=== PATIENT | male | born 1995 | race African-American/Black ===

== ENCOUNTER 2019-02-25 13:44 | Inpatient (IN) | payer MEDICAID, SELFPAY ==
[2019-02-25 13:54] VITALS: BP 158/95; PULSE 98; RESP 16; TEMP 36.6; O2SAT 97
--- NOTE | 2019-02-25 14:15 | ED.GENADUL_ITS ---
Discharge Plan Disposition Patient Disposition: [facility] INPATIENT Condition: Serious Discharge Details Chief Complaint: Cellulitis Clinical Impression: Cellulitis of face Admit Date/Time: 02/25/19 17:32 Admit Provider: Mack Cooper Attending Provider: Mack Coopre Primary Care Provider: None,None ED Provider: Winnie Garvin Hospital Course Hospital Course: Mr Kearns is a 24 year old male with PMHx of situational depression who was admitted to [facility] on 02/25/19 with facial cellulitis after attempt to pop a pimple at home with an unknown instrument at home. He did also admit to using IV drugs (heroin, cocaine). He was treated with IVF, IV vancomycin, IV rocephin. His blood cultures were negative. His wound c&s grew MRSA, sensitivities are pending. There is no evidence of abscess at this time. The patient, however, still has significant cellulitis and swelling of the right side of his face. He is going through substance withdrawal - we believe opioid and cocaine. He was evaluated to by psychiatry for his symptoms of anxiety and reported h allucinations - he is felt to not be suicidal/in an acute decompensation of a psychiatric condition, and his symptoms are likely related to withdrawal. He desires to leave AMA at this time. We are ensuring that the patient leaves with actual physical medications in hand (cipro/doxy). He is instructed to return to the ED/report to the nearest ED when he does leave. He verbalizes that he understands that he could , loose vision, get seriously ill if he does not get fully treated for this infection and desires to leave AMA anyway, signing appropriate paperwork. Discharge Instructions Instructions: Ciprofloxacin (By mouth), Doxycycline (By mouth), Cellulitis (DC) Additional Instructions: Report to the nearest ED. Take your antibiotics as prescribed. Discharge Data Discharge Date/Time-TO BE ENTERED AT DEPARTURE: 02/25/19 18:41 Medical Decision Making <Bro Sloan NP - Last Filed: 02/28/19 08:59> Patient presenting to the emergency department for chief complaint of facial infection. Patient states that 3 days ago he had a pimple on his cheek that he attempted to pop. Over the last 24 hours he has noted significant and rapid swelling to his face and his right eye. He does state some pain with movement of his eye and it is so swollen he cannot see out of it. Patient denies any blunt trauma, fever chills, or other areas of rash. Patient has significant swelling and induration and erythema to the right eye. Difficult to fully visualize and assess EOMs due to amount of swelling but it does appear the EOMs are intact but patient does state pain with EOM movement. There is significant concern for orbital cellulitis so plan to establish IV access, check labs, CT scan of the face, and start antibiotic immediately. Patient was started on vancomycin and ceftriaxone. Review of labs show a leukocytosis, no noted bandemia, nondiagnostic CMP with mildly elevated creatinine but normal GFR. <SANDI Haider - Last Filed: 02/27/19 08:03> Care transition to myself from Bro Sloan NP, with imaging pending. Patient presents today with concern for fairly dramatic right-sided facial swelling. Swelling is causing rght eye to be swollen shut. Reported mild pain with EOM although difficult to assess as we cannot see eye at this time. Concern for abscess, CT of face ordered. Patient started on vancomycin and ceftriaxone. CT reviewed by radiologist as below: FINDINGS: Orbits: Soft tissue swelling anterior and lateral to the right globe and right orbit may represent inflammation or infection. No retro-orbital inflammatory changes or fluid collection. Sinuses: Mucosal thickening in the maxillary sinuses and ethmoid sinuses may represent sinusitis. Bones/joints: No acute fracture. Soft tissues: Soft tissue swelling anterior to right maxillary sinus 18 mm IMPRESSION: 1. Soft tissue swelling anterior and lateral to the right globe and right orbit may represent inflammation or infection. 2. No retro-orbital inflammatory changes or fluid collection. 3. Mucosal thickening in the maxillary sinuses and ethmoid sinuses may represent sinusitis. Discussed findings with the patient and reevaluated. Feel that steroids are appropraite given amount of swelling. Will give dose of Dexamethasone. Discussed inpatient admission with the patient. Given location and severity of infection, feel that IV abx prudent at this time and will consult with hospitalist. Consulted with hospitalist who agreed to admission. HPI <Bro Sloan NP - Last Filed: 02/28/19 08:59> General Date/Time Provider Initiated Documentation: 02/25/19 14:00 . Limitations to Documentation: no limitations . Information obtained by: patient . History of Present Illness 24 year old M presents to the emergency department with the chief complaint of R eye swelling, described as moderate, with intensity rated at 7. Quality is described as constant, and is localized to the face (R eye and upper cheek). Patient reports no radiation. Patient started experiencing this day(s) (3) and it has been constant. No relieving factors improve symptom(s), No exacerbating factors reported . Patient notes denies cough, fever/chills, headaches, malaise and nausea/vomiting. Patient did receive the following treatments prior to arrival, other (abx given to him by a friend (gabapentin per pill ID)) Related Data Home Medications Medication Instructions Recorded Confirmed ciprofloxacin HCl [Cipro] 500 mg PO BID #20 tab 02/27/19 doxycycline hyclate 100 mg PO BID #20 cap 02/27/19 Previous Rx's Medication Instructions Recorded ciprofloxacin HCl [Cipro] 500 mg PO BID #20 tab 02/27/19 doxycycline hyclate 100 mg PO BID #20 cap 02/27/19 Allergies Allergy/AdvReac Type Severity Reaction Status Date / Time oranges Allergy Uncoded 02/25/19 13:57 General Stated Complaint: Cellulitis TAMI: 2 Review of Systems <Bro Solan NP - Last Filed: 02/28/19 08:59> Constitutional Denies chills, Denies fever(s) and Denies headache(s) Eyes Reports eye pain Comments: denies change in vision until last night, when eye swelled shut ENT Denies otalgia, Denies headache(s), Denies sinus pain, Denies sinus pressure and Denies sore throat Cardiovascular Denies chest pain and Denies palpitations Integumentary/Breasts Reports new lesions Comments: pustule to R upper cheek x 3 days, drained clear liquid when initially popped, but then started with yellow drainage last night Neurologic Denies headache(s) Endocrine Denies palpitations PFSH <Bro Sloan NP - Last Filed: 02/28/19 08:59> Medical History (Updated 02/27/19 @ 19:16 by Shruthi Segovia MD) Drug abuse and dependence (Acute) Situational depression (Acute) Social History Smoking/Tobacco Use Status: Current every day Tobacco Type: cigarettes Alcohol Intake: never Substance use type: marijuana and crack/cocaine Exam <Bro Sloan NP - Last Filed: 02/28/19 08:59> Const General: cooperative, comfortable, well developed and well groomed Nutritional Appearance: average body habitus Orientation: oriented x3 HENMT Head: normal to inspection and normocephalic Ears: hearing grossly normal bilaterally General nose exam: external nose normal Face and sinus: erythema on the right periorbital and maxilla (open pustule noted) and edema on the right periorbital and maxilla Eyes Alignment and Position: alignment normal Periorbital: periorbital findings abnormal right periorbital swelling, periorbital tenderness and periorbital erythema; no ecchymosis and no crepitus Eyelids: eyelid abnormality right upper eyelid erythema (significant), swelling and tenderness and right lower eyelid (significant induration and swelling) erythema, swelling and tenderness EOM: EOM intact bilaterally (painful) and EOM abnormal Direct ophthalmoscopy: photophobia not present Neck Neck: normal visual inspection and no lymphadenopathy Resp Effort & Inspection: normal respiratory effort and able to speak in complete se ntences Auscultation: clear to auscultation bilaterally Cardio Rate: regular rate Rhythm: regular rhythm Heart Sounds: S1 normal, S2 normal, no gallops, no murmurs and no rubs Neuro General: alert, gait normal, tone normal and moves all extremities Cognition: normal cognition Speech: speech normal Gait: normal gait Motor: muscle tone normal throughout Course <Bro Sloan NP - Last Filed: 02/28/19 08:59> Vital Signs Temperature 36.6 C 02/25/19 13:54 Pulse 98 H 02/25/19 13:54 Respiratory Rate 16 02/25/19 13:54 Blood Pressure 158/95 H 02/25/19 13:54 Pulse Oximetry 97 02/25/19 13:54 Temperature 36.6 C 02/25/19 13:54 Temperature Source Skin 02/25/19 13:54 Pulse 98 H 02/25/19 13:54 Respiratory Rate 16 02/25/19 13:54 Respiratory Effort Non-Labored 02/25/19 13:54 Blood Pressure 158/95 H 02/25/19 13:54 Blood Pressure Position Sitting 02/25/19 13:54 Pulse Oximetry 97 02/25/19 13:54 Oxygen Delivery Method Room Air 02/25/19 13:54 Oxygen Flow Rate 0 02/25/19 13:54 Pain Level 7 02/25/19 13:54
--- NOTE | 2019-02-25 14:17 | DI.CT_ITS ---
SYMPTOM/DIAGNOSIS: ? ABSCESS OR ORBITAL CELLULITIS, SWELLING AND PAIN RT FACE FACIAL CT: CT scan of the face with contrast was performed. There is soft tissue swelling in the right cory-orbital region and overlying the right maxilla. No focal fluid collection is seen to suggest an abscess. The orbits and retro-orbital soft tissues are unremarkable. There is opacification of several ethmoid air cells and mild mucosal thickening in the maxillary sinuses. There is also mild mucosal thickening in the sphenoid sinuses. The remaining visualized paranasal sinuses are clear as are the mastoid air cells. No fluid levels are seen. The bones are intact. IMPRESSION: Right cory-orbital soft tissue swelling suspicious for cellulitis. No abscess is seen. Orbits and retro-orbital soft tissues are unremarkable. Mild weems sinusitis.
[2019-02-25 14:52] LABS: Abs Immature Grans 0.04 k/cumm (0.0-0.09); Absolute Basophil Count 0.03 k/cumm (0.0-0.2); Absolute Eosinophil Count 0.11 k/cumm (0.0-0.7); Absolute Lymphocyte Count 1.56 k/cumm (1.2-3.4); Absolute Monocyte Count 0.99 k/cumm (0.11-0.7); Absolute Neutrophil Count 8.76 k/cumm (1.2-6.7); Basophils % 0.3; HCT 40.8 % (40.0-50.0); HGB 13.1 g/dL (13.5-17.5); Immature Grans % 0.3; Lymphocytes % 13.6; Mean Corp. HGB Concentration 32.1 g/dL (32.0-36.0); Mean Corpuscular Hemoglobin 25.7 pg (27.0-33.0); Mean Corpuscular Volume 80.2 fL (80-95); Mean Platelet Volume 11.2 fL (8.0-11.0); Monocytes % 8.6; Neutrophils % 76.2; Platelet Count 236 x1000/uL (130-400); RBC 5.09 m/cumm (4.50-6.00); RBC Distribution Width 16.3 % (11.8-14.1); White Blood Cell Count 11.49 k/cumm (4.4-10.8)
[2019-02-25 15:06] LABS: ALT 20 U/L (12-78); AST 21 U/L (15-37); Albumin 3.8 g/dL (3.4-5.0); Alkaline Phosphatase 62 U/L (46-116); Anion Gap 9.7 mmol/L (3-11); BUN 15 mg/dL (7-18); Bilirubin, Total 0.6 mg/dL (0.2-1.0); CO2 29.3 mmol/L (21.0-32.0); CREATININE 1.39 mg/dL (0.70-1.30); Calcium 9.5 mg/dL (8.5-10.1); Chloride 100 mmol/L (98-107); Glucose 97 mg/dL (70-100); Potassium 3.8 mmol/L (3.5-5.1); Sodium 139 mmol/L (136-145); Total Protein 8.5 g/dL (6.4-8.2)
[2019-02-25] MEDS: Ketorolac 30 MG/ML VIAL IVP (15:10)
[2019-02-25] MEDS: cefTRIAXone 2 GM/50 ML BAG IVPB (15:15)
[2019-02-25] MEDS: Omnipaque 350 MG/ML 100 ML BTL IJ (15:30)
[2019-02-25 15:59] LABS: Lactate-non-spesis 1.5 mmol/l (0.6-1.4)
[2019-02-25 16:01] VITALS: TEMP 36.7
--- NOTE | 2019-02-25 16:41 | DI.VRAD_ITS ---
EXAM: CT Maxillofacial With Contrast EXAM DATE/TIME: 02/25/2019 2:19 PM CLINICAL HISTORY: 24 years old, male; Other: Swelling RT orbit cheek area TECHNIQUE: Imaging protocol: Axial computed tomography images of the face with intravenous contrast. Coronal and sagittal reformatted images were created and reviewed. Contrast material: [id number]; Contrast volume: 100 ml; Contrast route: RT AC; COMPARISON: No relevant prior studies available. FINDINGS: Orbits: Soft tissue swelling anterior and lateral to the right globe and right orbit may represent inflammation or infection. No retro-orbital inflammatory changes or fluid collection. Sinuses: Mucosal thickening in the maxillary sinuses and ethmoid sinuses may represent sinusitis. Bones/joints: No acute fracture. Soft tissues: Soft tissue swelling anterior to right maxillary sinus 18 mm IMPRESSION: 1. Soft tissue swelling anterior and lateral to the right globe and right orbit may represent inflammation or infection. 2. No retro-orbital inflammatory changes or fluid collection. 3. Mucosal thickening in the maxillary sinuses and ethmoid sinuses may represent sinusitis. Dictated and Authenticated by: Ninfa Thomas MD. Ordering:HETAL Crabtree MD
[2019-02-25 16:57] VITALS: BP 137/67; PULSE 75; RESP 20; TEMP 36.6; O2SAT 98
[2019-02-25] MEDS: Dexamethasone 10 MG/ML VIAL IVP (17:24)
--- NOTE | 2019-02-25 17:36 | W.PM.HP.N ---
Date of service: 02/25/19 Time of Service: 17:36 Assessment and Plan (1) Cellulitis of face: Start date: 02/25/19 Current visit: Yes Status: Acute This is a 24-year-old gentleman who tried to express a pimple in his right face resulting in infection which accelerated over the last 24 hours with increased swelling and pain over his right face and his IV close. He received 10 mg of IV Decadron in the ED which has helped the swelling almost immediately and also we are giving him vancomycin and Rocephin IV. He will receive IV Toradol as needed. If his cellulitis responds quickly he may be converted to oral therapy and discharged home within the next 24 to 48 hours. Due to his mild dehydration, he will have IV hydration overnight be converted to IV saline lock in the morning if he is doing well. (2) Tobacco dependence: Current visit: Yes Status: Chronic Patient will be given Nicotrol inhalers as needed with a nicotine patch and inhaler to be used upon admission and his heart is slightly hyperdynamic. He is not symptomatic. If he needs a low-dose Ativan during his hospital stay because of recent depression and his present state of anxiety, this will be given. History of Present Illness Chief Complaint: Right face and eye swelling Narrative: This is a 24-year-old with a 3-day history of swelling over his right face with acceleration over the last 24 hours without fever but increasing pain and swelling around his right eye. This began whenever he tried to express a pimple over his right face. He is a smoker but has no other pertinent chronic past medical history and no past surgical history. In the ED he had no fever or elevated white count though his lactate was slightly elevated and his creatinine was slightly up with decreased intake recently because of depression over the of his sister. He was given his initial dose of vancomycin and Rocephin. He also was given dexamethasone IV which appears to have helped the swelling within the last couple hours, being decreased and the patient able to open his eye more at the time I examined him. 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 Review of Systems Review of Systems 13 point review of systems otherwise unrevealing or stable and as per HPI. [facility] Medical History (Updated 02/25/19 @ 21:55 by Mack Cooper) Situational depression (Acute) Social History Smoking/Tobacco Use Status: Current every day Tobacco Type: cigarettes Alcohol Intake: never Substance use type: marijuana and crack/cocaine Meds Home Medications Medication Instructions Recorded Confirmed Type Unknown [No Known Home Meds] 02/25/19 02/25/19 History Allergies Allergy/AdvReac Type Severity Reaction Status Date / Time oranges Allergy Uncoded 02/25/19 13:57 Exam Narrative Exam Narrative: General: Patient is a very tall slightly restless pacing the room with his IV pole. He is alert and oriented x3. He is in no acute distress. HEENT: Normocephalic with swelling of the right malar face and a bandage over the mid cheek without drainage on the bandage. This area is tender to palpation and not fluctuant. His eye is partially open compared to being completely shut in the ED. Eyes reveal pupils equal reactive light symmetrically with extraocular movement intact and sclera anicteric. Oropharynx clear with pink, moist mucosa. Ears normal. Neck: Supple without JVD. Back: Normal posture with no CVA tenderness. Lungs: Clear to auscultation and percussion. No adventitious sounds. Normal inspiratory to expiratory phase ratio. Heart: Slightly dynamic precordium but regular rate and rhythm with no murmurs, gallops or rubs. Abdomen: Scaphoid contour, soft and nontender to palpation. No palpable hepatomegaly. Bowel sounds positive in all quadrants. Genitalia/Rectal: Exam deferred. Extremities: Without clubbing, cyanosis or edema. Skin: Black with no rashes, good turgor and smooth. There is slight erythema over his right face is difficult to see with his dark pigmentation. Neuro: Cranial nerves II through XII grossly intact. Motor and sensory grossly intact. Psych: Slightly anxious with depressed mood but remote and recent memory intact. Slightly pressured speech. Fair eye contact but flattened affect. Results Imaging Imaging Studies: EXAM: CT Maxillofacial With Contrast EXAM DATE/TIME: 02/25/2019 2:19 PM CLINICAL HISTORY: 24 years old, male; Other: Swelling RT orbit cheek area TECHNIQUE: Imaging protocol: Axial computed tomography images of the face with intravenous contrast. Coronal and sagittal reformatted images were created and reviewed. Contrast material: [id number]; Contrast volume: 100 ml; Contrast route: RT AC; COMPARISON: No relevant prior studies available. FINDINGS: Orbits: Soft tissue swelling anterior and lateral to the right globe and right orbit may represent inflammation or infection. No retro-orbital inflammatory changes or fluid collection. Sinuses: Mucosal thickening in the maxillary sinuses and ethmoid sinuses may represent sinusitis. Bones/joints: No acute fracture. Soft tissues: Soft tissue swelling anterior to right maxillary sinus 18 mm IMPRESSION: 1. Soft tissue swelling anterior and lateral to the right globe and right orbit may represent inflammation or infection. 2. No retro-orbital inflammatory changes or fluid collection. 3. Mucosal thickening in the maxillary sinuses and ethmoid sinuses may represent sinusitis. Dictated and Authenticated by: Ninfa Thomas MD. Labs : 02/25/19 14:40 02/25/19 14:40 Laboratory Results - last 24 hr 02/25/19 02/25/19 02/25/19 14:40 14:40 15:45 WBC 11.49 H RBC 5.09 Hgb 13.1 L Hct 40.8 MCV 80.2 MCH 25.7 L MCHC 32.1 RDW 16.3 H Plt Count 236 MPV 11.2 H Immature Gran % 0.3 Neutrophils % 76.2 Lymphocytes % 13.6 Monocytes % 8.6 Eosinophils % 1.0 Basophils % 0.3 Absolute Neutrophils 8.76 H Absolute Lymphocytes 1.56 Absolute Monocytes 0.99 H Absolute Eosinophils 0.11 Absolute Basophils 0.03 Sodium 139 Potassium 3.8 Chloride 100 Carbon Dioxide 29.3 Anion Gap 9.7 BUN 15 Creatinine 1.39 H Estimated GFR/1.73 m2 >= 60.00 Glucose 97 Lactate 1.5 H Calcium 9.5 Total Bilirubin 0.6 AST 21 ALT 20 Alkaline Phosphatase 62 Total Protein 8.5 H Albumin 3.8 Last Vital Signs Temp 36.6 C 02/25/19 16:57 Pulse 75 02/25/19 16:57 Resp 82 H 02/25/19 16:57 BP 137/67 02/25/19 16:57 Pulse Ox 98 02/25/19 16:57
[2019-02-25 19:00] VITALS: BP 150/88; PULSE 77; RESP 20; TEMP 36.9; O2SAT 97
[2019-02-25 19:10] VITALS: BP 150/88; PULSE 77; RESP 20; TEMP 36.9; O2SAT 97
[2019-02-25] MEDS: Enoxaparin 40 MG/0.4 ML SYR SC (20:16)
[2019-02-25] MEDS: Normal Saline 1,000 ML 125 ML IV (22:23)
--- NOTE | 2019-02-25 23:43 | NUR.NOTE ---
Nursing Note: Pt was admitted in Rm. 229, AO x#, restless on bed, up and about to chair. Right face with skin opening with scanty pinkish discharge noted. and swollen around and right eye closed but when asked to cover left, pt stated that he could see and read. Small dry gauze applied on the facial cellulitis.Decline to use nicotine patch.Refused to eat what was offered at supper tray. Call lights system at reach and requested to close the door all the time.
[2019-02-25 23:49] VITALS: BP 152/86; PULSE 74; RESP 20; TEMP 36.6; O2SAT 97
[2019-02-26] VITALS (7 sets, daily range): BP systolic 143–186; BP diastolic 76–98; PULSE 53–85; RESP 15–18; TEMP 36.1–37; O2SAT 95–100
[2019-02-26] MEDS: Normal Saline 1,000 ML 125 ML IV (03:12)
[2019-02-26] MEDS: cefTRIAXone 2 GM/50 ML BAG IVPB ×2 (04:05→15:41)
--- NOTE | 2019-02-26 07:06 | NUR.NOTE ---
Patient this 3a-7a shift has been up and down constantly, mostly walking around room. Girlfriend did come to visit for approximately one hour and then left. Patient has been very restless all this shift. Does report having ADD. At approximately 0645 patient in bathroom, pump alarming. Went into room, patient is in bathroom, the dressing is off his face at this time. I requested to put a new one on and he said no, he wanted to finish getting cleaned up first. So then brought in soap and washclothes per his request. Pump then alarming again at 0700 and into room, patient is standing in doorway in a towel only. Reports the IV thing came off. When looking, the IV cannula is on his arm, under the tegaderm but it is not in his skin anymore, the rest of the tubing is hanging off the pump. Advised the IV is out and he said no, it's not, it's okay, I showed him what it looked like and reported we would need a new IV site as the Vancomycin did not finish. He said, well I need to finish cleaning up first and he went back into the bathroom and closed the door. At 0710 he came out of the bathroom. I went into the room, he was sitting on the bed. I removed the cannula and tegaderm. The cannula was not in his arm. I applied a new dressing to his cheek, which was pink cory-wound, red wound bed, some s/s drainage visible. Patient was visibly upset, asked how long are we going to do this? I don't have any insurance so it needs to be basic. I just want to go home. I advised patient that he would be speaking with the doctor this morning as well as care management. I advised that care management could help him apply for Medicaid if that is something he would be interested in. He laid down on the bed. Gave full report of the above to the oncoming nurse. Nursing Note:
[2019-02-26 07:10] LABS: HCT 38.5 % (40.0-50.0); HGB 12.2 g/dL (13.5-17.5); Mean Corp. HGB Concentration 31.7 g/dL (32.0-36.0); Mean Corpuscular Hemoglobin 25.7 pg (27.0-33.0); Mean Corpuscular Volume 81.2 fL (80-95); Mean Platelet Volume 11.5 fL (8.0-11.0); Platelet Count 253 x1000/uL (130-400); RBC 4.74 m/cumm (4.50-6.00); RBC Distribution Width 16.2 % (11.8-14.1); White Blood Cell Count 12.68 k/cumm (4.4-10.8)
--- NOTE | 2019-02-26 07:38 | NUR.NOTE ---
0730 Asked to see the patient by Asim Harris RN. Pt is pacing and appears agitated. Threatening to leave. Crying. Stating he wants to go home. This nurse spoke to the patient's mother on the the patient's cell phone at the patient's request. She is unsure how to help the patient. She states the problem is his being far from home without anyone with him. She lives in [place], [place] and is on her way to work. Pt. states his home is in [place], [place]. Pt states he has a ride to [place] and would prefer to be admitted to a hospital there. Pt would also like to smoke stating the nicotrol inhaler does not work for him. Pt will wait for the doctor to finish her report from the night hospitalist. I will then speak with the MD regarding this patient's concerns. Nursing Note:
[2019-02-26 07:49] LABS: ALT 18 U/L (12-78); AST 28 U/L (15-37); Albumin 3.7 g/dL (3.4-5.0); Alkaline Phosphatase 59 U/L (46-116); Anion Gap 9.9 mmol/L (3-11); BUN 19 mg/dL (7-18); Bilirubin, Total 0.2 mg/dL (0.2-1.0); CO2 28.1 mmol/L (21.0-32.0); CREATININE 1.01 mg/dL (0.70-1.30); Calcium 9.5 mg/dL (8.5-10.1); Chloride 100 mmol/L (98-107); Glucose 124 mg/dL (70-100); Potassium 4.4 mmol/L (3.5-5.1); Sodium 138 mmol/L (136-145); Total Protein 8.4 g/dL (6.4-8.2)
[2019-02-26] MEDS: LORazepam 0.5 MG TAB PO (08:02)
[2019-02-26 08:21] LABS: Magnesium 2.2 mg/dL (1.8-2.4)
[2019-02-26] MEDS: Nicotine 14 MG/24 HR PATCH TD (08:27)
[2019-02-26 08:36] LABS: Lactate-non-spesis 1.6 mmol/l (0.6-1.4)
[2019-02-26 09:24] LABS: *AMPHETAMINES SCREEN URINE Negative (Negative); *BARBITURATES SCREEN URINE Negative (Negative); *BENZODIAZEPINES SCREEN URINE Negative (Negative); Cannabinoids THC POSITIVE (Negative); Cocaine Screen,Urine POSITIVE (Negative); METHADONE URINE SCREEN Negative (Negative); OPIATES URINE SCREEN POSITIVE (Negative)
[2019-02-26 09:25] LABS: Tricyclic Antidepressants Negative (Negative)
[2019-02-26] MEDS: Normal Saline Flush 10 ML SYR IVP ×3 (10:27→21:59)
[2019-02-26] MEDS: LORazepam 1 MG TAB PO ×2 (10:56→19:56)
[2019-02-26] MEDS: LORazepam 1 MG TAB PO/SL (12:08)
--- NOTE | 2019-02-26 12:41 | PHARADMIT ---
Admission Pharmacy Clinical Review facial cellulitis Code Status Full Code Current Weight Wgt-84.8 kg Renally Cleared and Narrow Therapeutic Index Meds Crcl~ 122 mL/min Meds-OK QTc Value / Action Taken na BP Control, Fever BP- 157/82 Tmax- 36.6C Electrolytes reviewed Na- 138 K+4.4 Mag-2.2 DVT Prophylaxis none, young ambulatory Opiate Usage / Scheduled Bowel Regimen Ordered No Yes Plt/SCr for Heparin / Enoxaparin Plts-253 SCr-1.01 INR for Warfarin na H/H stable, WBC/Bands H&H- 12.2/38.5 WBC- 12.68 Antibiotic appropriateness Rocephin, Vancomycin Cultures and Sensitivities Face wound-pending, blood-pending Surgical ABX d/c within 24 hr na DM control / Insulin Dosing BG-124 Heart Failure (Check EF%) (AFIA's, B-Block, Diuretics) none IV to PO Switch No Home Meds Reviewed Yes Home Meds Not Ordered Augmentin Comments On CIWA-protocol
--- NOTE | 2019-02-26 12:47 | PDOC.CMPRO ---
- If Service Date Differs Date of service: 02/26/19 Time of Service: 12:47 Care Management Progress Note S/O: CM was asked to see patient because of escalating behaviors. Ping voluntarily produced an unidentified pilll which he gave to his nurse. It was determined to be gabapentin. Because he had a visitor at the time, it was unclear if the visitor had brought him the medication or if he had it on his person. A urine drug screen had came back positive for opiates, cocaine and THC. A behavior plan was requested and Ping agreed to the terms and signed it. Please see below. Behavioral Health Plan Ping Kearns Behavioral plan will be established with patient, and care team, to adhere to patient goals, identify restrictions based on behavioral status, address nutrition, and determine allowed personal belongings, tools for hygiene and personal care. Plan will determine level of activity as well, including ambulation, level of supervision, visitors, and determine privileges based on level of acuity, behaviors and level of engagement by patient. 1. Random Urine Drug Screens will be completed with staff supervision 2. Visitors permitted with supervision 3. Personal Belongings will be allowed based on behavioral status 4. Door to remain open unless staff with patient 5. Restrict to Unit ambulate ad bryant in the halls Signature: Witness:
--- NOTE | 2019-02-26 13:13 | PGE_ITS ---
Date of Service Date of service: 02/26/19 Time of Service: 13:13 Assessment and Plan (1) Cellulitis of face: Start date: 02/26/19 Start time: 13:28 Current visit: Yes Status: Acute Day 2 of vanco and ceftriaxone. Does endorse having pimple popped with razor that was dipped in alcohol. Wound culture sent. Blood cultures pending at this time. IV dcd per patient request. Warm compresses QID, if it becomes softer and more purulent consider u/s and surgical consult. (2) Drug abuse and dependence: Start date: 02/26/19 Start time: 13:29 Current visit: Yes Status: Acute History of heroin and cocaine use in the last 24 hours. Appears to be going through withdrawal but also a psych component. He does have a history of PTSD and recently released from [facility]. He is very anxious placed on CIWA with Serax TID and ativan 1 mg TID with 0.5 prn for opiate and cocaine withdrawal. Initially scoring 17-19 on CIWA. Continue to monitor. Patient may required ICU status if he becomes worse or starts to score higher (3) Situational depression: Start date: 02/26/19 Start time: 13:33 Current visit: Yes Status: Acute recently out of [facility], question of recent of sister.Highly anxious, question if there is a greater component to mental illness. Dr. Segovia tried to evaluate patient today but was sleepy from ativan, he has agreed to talk to her and she will try again tomorrow. Monitor closely. (4) Tobacco dependence: Start date: 02/26/19 Start time: 13:35 Current visit: Yes Status: Chronic Current smoker, given nicotrol inhaler and nicoderm patch. (5) DVT prophylaxis: Start date: 02/26/19 Start time: 13:35 Current visit: Yes Status: Acute Contraindicated in a 24 y.o. male who is ambulatory in the room. Subjective Patient reports: other Interval history since last seen: Mr. Kearns was anxious this am, UDS shows cocaine and opiates, which he did endorse to using in the last 24 hours. He states that he had a pimple on his face and his friend a nurse used a razor dipped in alcohol to cut it out open; his friend suggested he use heroin to help the pain. She then proceeded to cut his pimple and they used cocaine right after. He was placed on CIWA, unknown if he does drink alcohol. He is scoring but there is some question of underlying psych issues. He states having PTSD with underlying visual and auditory hallucinations. Psychiatry has been asked to see him. He is very anxious, he has been very honest and willing to work with staff but particular to who he works with. Patient did endorse having a pill on his person that was not prescribed to him, at the same time guests were in the room. The pill was gabapentin 600 mg. He did admit to taking one last night but none today. It is advised he have supervised visits with guests. He has a 2 cm by 2 1/2 cm firm indurated nodule to his right cheek. He is on ceftriaxone and vancomycin at this time. His right eye is edetamous with drsg to wound. Wound was cultured today and blood cultures pending at this time. Spoke with surgery regarding wound and at this time there is nothing they will do, if wound softens and comes more purulent they would like to be consulted in 24-48 hours and have an orbital u/s done. He denies CP, SOB, he did have some vomiting earlier and zofran was ordered. Exam Narrative Exam Narrative: General: Patient is very anxious. He is alert and oriented x3. He is in no acute distress. HEENT: Normocephalic with swelling of the right malar face and a bandage over the mid cheek with moderate amount of drainage on the bandage. This area is tender to palpation and not fluctuant. His eye is partially open compared to being completely shut in the ED. Eyes reveal pupils equal reactive light symmetrically with extraocular movement intact and sclera anicteric. Oropharynx clear with pink, moist mucosa. Ears normal. Neck: Supple without JVD. Back: Normal posture with no CVA tenderness. Lungs: Clear to auscultation and percussion. No adventitious sounds. Normal inspiratory to expiratory phase ratio. Heart: Slightly dynamic precordium but regular rate and rhythm with no murmurs, gallops or rubs. Abdomen: Scaphoid contour, soft and nontender to palpation. No palpable hepatomegaly. Bowel sounds positive in all quadrants. Genitalia/Rectal: Exam deferred. Extremities: Without clubbing, cyanosis or edema. Skin: Black with no rashes, good turgor and smooth. There is slight erythema over his right face is difficult to see with his dark pigmentation. Neuro: Cranial nerves II through XII grossly intact. Motor and sensory grossly intact. Psych: Slightly anxious with depressed mood but remote and recent memory intact. Slightly pressured speech. Fair eye contact but flattened affect. Objective Objective Clinical Data: Abnormal lab results 02/25/19 02/25/19 02/25/19 Range/Units 14:40 14:40 15:45 WBC 11.49 H (4.4-10.8) k/cumm Hgb 13.1 L (13.5-17.5) g/dL Hct (40.0-50.0) % MCH 25.7 L (27.0-33.0) pg MCHC (32.0-36.0) g/dL RDW 16.3 H (11.8-14.1) % MPV 11.2 H (8.0-11.0) fL Absolute Neutrophils 8.76 H (1.2-6.7) k/cumm Absolute Monocytes 0.99 H (0.11-0.7) k/cumm BUN (7-18) mg/dL Creatinine 1.39 H (0.70-1.30) mg/dL Glucose (70-100) mg/dL Lactate 1.5 H (0.6-1.4) mmol/l Total Protein 8.5 H (6.4-8.2) g/dL 02/26/19 02/26/19 02/26/19 Range/Units 06:42 06:42 08:32 WBC 12.68 H (4.4-10.8) k/cumm Hgb 12.2 L (13.5-17.5) g/dL Hct 38.5 L (40.0-50.0) % MCH 25.7 L (27.0-33.0) pg MCHC 31.7 L (32.0-36.0) g/dL RDW 16.2 H (11.8-14.1) % MPV 11.5 H (8.0-11.0) fL Absolute Neutrophils (1.2-6.7) k/cumm Absolute Monocytes (0.11-0.7) k/cumm BUN 19 H (7-18) mg/dL Creatinine (0.70-1.30) mg/dL Glucose 124 H (70-100) mg/dL Lactate 1.6 H (0.6-1.4) mmol/l Total Protein 8.4 H (6.4-8.2) g/dL Vital Signs Temperature 36.1 C L 02/26/19 10:04 Temperature Source Tympanic 02/26/19 10:04 Pulse 70 02/26/19 10:04 Pulse Rhythm Regular 02/26/19 04:00 Respiratory Rate 16 02/26/19 10:04 Respiratory Effort 02/26/19 04:00 Respiratory Depth Normal 02/26/19 04:00 Respiratory Pattern Normal 02/26/19 04:00 Blood Pressure 157/82 H 02/26/19 10:04 Blood Pressure Position Sitting 02/25/19 13:54 Pulse Oximetry 98 02/26/19 10:04 Oxygen Delivery Method Room Air 02/26/19 10:04 Oxygen Flow Rate 0 02/26/19 10:04 Pain Level 8 02/26/19 07:25 Comment 02/26/19 07:25 Intake & Output 02/25/19 02/26/19 02/26/19 23:59 11:59 23:59 Intake Total 250 / 250 2152.083 / 2152.083 Balance 250 / 250 2152.083 / 2152.083 Weight 84.822 kg 84.822 kg Intake: IV 250 / 250 1552.083 / 1552.083 Oral 600 / 600 Other: Urine Appearance Clear Comment Urine not seen, voiding frequently, in and out of bathroom. Denies issues. Voiding Methods Toilet Toilet Laboratory Results WBC 12.68 k/cumm (4.4-10.8) H 02/26/19 06:42 RBC 4.74 m/cumm (4.50-6.00) 02/26/19 06:42 Hgb 12.2 g/dL (13.5-17.5) L 02/26/19 06:42 Hct 38.5 % (40.0-50.0) L 02/26/19 06:42 MCV 81.2 fL (80-95) 02/26/19 06:42 MCH 25.7 pg (27.0-33.0) L 02/26/19 06:42 MCHC 31.7 g/dL (32.0-36.0) L 02/26/19 06:42 RDW 16.2 % (11.8-14.1) H 02/26/19 06:42 Plt Count 253 x1000/uL (130-400) 02/26/19 06:42 MPV 11.5 fL (8.0-11.0) H 02/26/19 06:42 Immature Gran % 0.3 02/25/19 14:40 76.2 02/25/19 14:40 13.6 02/25/19 14:40 8.6 02/25/19 14:40 1.0 02/25/19 14:40 0.3 02/25/19 14:40 Absolute Neutrophils 8.76 k/cumm (1.2-6.7) H 02/25/19 14:40 Absolute Lymphocytes 1.56 k/cumm (1.2-3.4) 02/25/19 14:40 Absolute Monocytes 0.99 k/cumm (0.11-0.7) H 02/25/19 14:40 Absolute Eosinophils 0.11 k/cumm (0.0-0.7) 02/25/19 14:40 Absolute Basophils 0.03 k/cumm (0.0-0.2) 02/25/19 14:40 Sodium 138 mmol/L (136-145) 02/26/19 06:42 Potassium 4.4 mmol/L (3.5-5.1) 02/26/19 06:42 Chloride 100 mmol/L (98-107) 02/26/19 06:42 Carbon Dioxide 28.1 mmol/L (21.0-32.0) 02/26/19 06:42 9.9 mmol/L (3-11) 02/26/19 06:42 BUN 19 mg/dL (7-18) H 02/26/19 06:42 1.01 mg/dL (0.70-1.30) 02/26/19 06:42 >= 60.00 (mL/min/1.73m2) 02/26/19 06:42 Glucose 124 mg/dL (70-100) H 02/26/19 06:42 1.6 mmol/l (0.6-1.4) H 02/26/19 08:32 Calcium 9.5 mg/dL (8.5-10.1) 02/26/19 06:42 Magnesium 2.2 mg/dL (1.8-2.4) 02/26/19 06:42 0.2 mg/dL (0.2-1.0) 02/26/19 06:42 AST 28 U/L (15-37) 02/26/19 06:42 ALT 18 U/L (12-78) 02/26/19 06:42 59 U/L (46-116) 02/26/19 06:42 8.4 g/dL (6.4-8.2) H 02/26/19 06:42 3.7 g/dL (3.4-5.0) 02/26/19 06:42 Positive (Negative) 02/26/19 08:40 Negative (Negative) 02/26/19 08:40 Ur Barbiturates Screen Negative (Negative) 02/26/19 08:40 Ur Tricyclics Screen Negative (Negative) 02/26/19 08:40 Ur Amphetamines Screen Negative (Negative) 02/26/19 08:40 U Benzodiazepines Scrn Negative (Negative) 02/26/19 08:40 Positive (Negative) 02/26/19 08:40 Ur THC Screen Positive (Negative) 02/26/19 08:40
--- NOTE | 2019-02-26 13:29 | NUR.NOTE ---
Patient was observed to have had visitors , after they left, this nurse had some concerns, and based on patients admission of using drugs in the last 24 hours, I questioned if they had given him anything. he vehemently denies this, but shortly after produced a pill from the garbage can. he stated that it was given to him from an outside source 2 day s earlier, and he had taken some in the previous 2 days. It was explained to him, that i needed to identify the medication, as it was important to know that it could interact with medications that were given to him. Provider identified the medication as gabapentin 600 mg, based on this information a behavior care plan was made.n this included supervised visitation by friends. This upset the patient , but he was given time to calm down and was explained to him that his safety was our concern, and by his admission of using drugs protecting him from outside medications. ing Note:
--- NOTE | 2019-02-26 13:33 | W.PSYCHCONSU ---
Date of service: 02/26/19 Time of Service: 13:00 History of Present Illness Narrative: I was asked by Shakira Tapia NP to see Ping Kearns for evaluation of auditory and visual hallucinations as well as PTSD. He is on the CWA protocol, had just been scored at 19 and been administered 3mg of lorazepam, and was unsteady on his feet and becoming very drowsy when I saw him. He was agreeable to talking with me but unable to maintain attention for more than a few seconds before drifting off to sleep. I will re-attempt an initial visit tomorrow. I reviewed the [facility] protocol with the nurse and auditory and visual hallucinations are patient reported but not objectively observed in behaviors indicating response to internal stimuli. [facility] Medical History (Updated 02/26/19 @ 13:27 by Shakira Tapia NP) Drug abuse and dependence (Acute) Situational depression (Acute) Social History Smoking/Tobacco Use Status: Current every day Tobacco Type: cigarettes Alcohol Intake: never Substance use type: marijuana and crack/cocaine Results Last Vital Signs Temp 36.6 C 02/26/19 12:00 Pulse 64 02/26/19 12:00 Resp 16 02/26/19 12:00 BP 144/88 H 02/26/19 12:00 Pulse Ox 100 02/26/19 12:00 Labs : 02/26/19 06:42 02/26/19 06:42 Laboratory Results - last 24 hr 02/25/19 02/25/19 02/25/19 14:40 14:40 15:45 WBC 11.49 H RBC 5.09 Hgb 13.1 L Hct 40.8 MCV 80.2 MCH 25.7 L MCHC 32.1 RDW 16.3 H Plt Count 236 MPV 11.2 H Immature Gran % 0.3 Neutrophils % 76.2 Lymphocytes % 13.6 Monocytes % 8.6 Eosinophils % 1.0 Basophils % 0.3 Absolute Neutrophils 8.76 H Absolute Lymphocytes 1.56 Absolute Monocytes 0.99 H Absolute Eosinophils 0.11 Absolute Basophils 0.03 Sodium 139 Potassium 3.8 Chloride 100 Carbon Dioxide 29.3 Anion Gap 9.7 BUN 15 Creatinine 1.39 H Estimated GFR/1.73 m2 >= 60.00 Glucose 97 Lactate 1.5 H Calcium 9.5 Magnesium Total Bilirubin 0.6 AST 21 ALT 20 Alkaline Phosphatase 62 Total Protein 8.5 H Albumin 3.8 Urine Opiates Screen Urine Methadone Screen Ur Barbiturates Screen Ur Tricyclics Screen Ur Amphetamines Screen U Benzodiazepines Scrn Urine Cocaine Screen Ur THC Screen 02/26/19 02/26/19 02/26/19 06:42 06:42 08:32 WBC 12.68 H RBC 4.74 Hgb 12.2 L Hct 38.5 L MCV 81.2 MCH 25.7 L MCHC 31.7 L RDW 16.2 H Plt Count 253 MPV 11.5 H Immature Gran % Neutrophils % Lymphocytes % Monocytes % Eosinophils % Basophils % Absolute Neutrophils Absolute Lymphocytes Absolute Monocytes Absolute Eosinophils Absolute Basophils Sodium 138 Potassium 4.4 Chloride 100 Carbon Dioxide 28.1 Anion Gap 9.9 BUN 19 H Creatinine 1.01 Estimated GFR/1.73 m2 >= 60.00 Glucose 124 H Lactate 1.6 H Calcium 9.5 Magnesium 2.2 Total Bilirubin 0.2 AST 28 ALT 18 Alkaline Phosphatase 59 Total Protein 8.4 H Albumin 3.7 Urine Opiates Screen Urine Methadone Screen Ur Barbiturates Screen Ur Tricyclics Screen Ur Amphetamines Screen U Benzodiazepines Scrn Urine Cocaine Screen Ur THC Screen 02/26/19 08:40 WBC RBC Hgb Hct MCV MCH MCHC RDW Plt Count MPV Immature Gran % Neutrophils % Lymphocytes % Monocytes % Eosinophils % Basophils % Absolute Neutrophils Absolute Lymphocytes Absolute Monocytes Absolute Eosinophils Absolute Basophils Sodium Potassium Chloride Carbon Dioxide Anion Gap BUN Creatinine Estimated GFR/1.73 m2 Glucose Lactate Calcium Magnesium Total Bilirubin AST ALT Alkaline Phosphatase Total Protein Albumin Urine Opiates Screen Positive Urine Methadone Screen Negative Ur Barbiturates Screen Negative Ur Tricyclics Screen Negative Ur Amphetamines Screen Negative U Benzodiazepines Scrn Negative Urine Cocaine Screen Positive Ur THC Screen Positive
--- NOTE | 2019-02-26 15:30 | NUR.NOTE ---
Patient highly anxious during assessment this morning at approximately 07:30. Non-compliant with answering questions, following directions, etc. Nursing attempted to educate patient about disease process and importance of staying for care and patient stated I don't care what happens to me, I just want to go home Nursing Note:
--- NOTE | 2019-02-26 16:20 | NUR.NOTE ---
Nursing Note: When patient woke up , he was confused, needed to be reoriented to time and place. kept asking who brought me here?, difficult to reorient. forgot a lot of what happened this am. patient has had another episode of emesis. patient produces a pack of cigarettes and a seismograph recorder, he relinquishes the cigarettes, but refuses to give up the seismograph recorder, CCC was made aware. he was also observed to have a wad of devlin.patient was offered to have it locked up in the safe, but he refuses to do so, at least 2 100 dollar bills were seen buy this nurse. after further encouragement still decline to put the money in safe keeping, will continue to monitor patient for his safety
[2019-02-26] MEDS: Ondansetron 4 MG/2 ML VIAL IVP (16:53)
--- NOTE | 2019-02-26 17:04 | NUR.NOTE ---
Patient was in bathroom, vomiting. Nursing was outside of door monitoring patient for risk of fall, as he has been medicated with ativan. Patient finished vomiting, flushed the toilet, and nursing heard plastic rustling in the bathroom and asked the patient if he was ok. Patient replied yeah and plastic continued to rustle. The patient then flushed the toilet again and opened the bathroom door and immediately stuck his hand in his pocket. Nursing and pst supervisor aware, continuing to monitor the situation. Nursing Note:
--- NOTE | 2019-02-26 17:05 | NUR.NOTE ---
Nursing Note: patient makes continuous trips to the bathroom, concerns expressed to the desk, all we can do is continue to monitor and support the patient.
--- NOTE | 2019-02-26 17:22 | INITIAL_ITS ---
- If Service Date Differs Date of service: 02/26/19 Time of Service: 17:22 Care Management Initial Assess REASON FOR HOSPITALIZATION:: cellulitis of the right face PAST MEDICAL HISTORY/PAST SURGICAL HISTORY:: situational depression. substance abuse - cocaine and marijuana PREVIOUS FUNCTIONAL STATUS/SOCIAL/FAMILY SUPPORTS:: Ping was difficult to communicate with but indicated that he lives in both [facility] and [facility]. 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 He has 3 sisters who all live in [place]. and a mother who may live in [place]. He is currently staying with a friend, Demetrius Vance, in [facility] . CURRENT FUNCTIONAL STATUS:: Ping is scoring high on both the alcohol withdrawal (CIWA)m scale and the opiate withdrawal scale. Each time CM visited he was either in the BR, going in or coming out. He vomitted this afternoon. Ping was unable to maintain eye contact or answer some questions intelligibly. He was exhibiting jerky movements and was restless When he was signing his behavioral plan he asked if it was possible that the paper was changing color. He was assured that was not the case. Ping denies having a PCP anywhere and states he does not have insurance. When more stable, CM will assist him in completeing a Patient Financial packageand assess for other care needs. Has patient been provided with information about the portal?: No Did the patient sign up for the portal?: No CODE STATUS:: Full Code INSURANCE COVERAGE / FINANCIAL ISSUES:: none CURRENT HOME/COMMUNITY SERVICES/EQUIPMENT:: none PRIMARY CARE PHYSICIAN:: none POTENTIAL DISCHARGE NEEDS:: PCP, insurance, follow up plan of care PATIENT/FAMILY EDUCATION NEEDS:: discharge plan, limiatations, follow up plan, Ask Me Three. TRANSPORTATION:: likely via private vehicle with friend PLAN:: Ping is being treated for facial cellulitis. He will likely be discharged home to a friend's house with no services. CM will continue to support Ping and the discharge planning process.
[2019-02-26] MEDS: cloNIDine 0.1 MG TAB PO (18:46)
--- NOTE | 2019-02-26 18:54 | NUR.NOTE ---
Nursing Note: patient is redirected away from the elevator as he attempts to exit floor, it is explained to him that as an inpatient we are committed to maintaining his safety, he has a visitor that advises him that this is in his best interest and asks him to comply with the staff. speak to DR. brenner of this and that his COW assessment trended up to 17 she asked for Vs and was going to prescribe clonidine if his hr and bp were appropriate
--- NOTE | 2019-02-26 22:07 | NUR.NOTE ---
Patient noted with uncertain amount of devlin in hand in the room was advise to put devlin in the safe that is provided on the garcia for safe keeping but he refused state he would rather keep on his person then he placed inside his pants.
[2019-02-27 00:53] VITALS: BP 150/89; PULSE 60; RESP 20; TEMP 37.3; O2SAT 100
[2019-02-27] MEDS: cefTRIAXone 2 GM/50 ML BAG IVPB (03:39)
[2019-02-27] MEDS: Normal Saline Flush 10 ML SYR IVP (03:39)
[2019-02-27 04:10] VITALS: BP 156/80; PULSE 58; RESP 16; TEMP 36.8; O2SAT 100
[2019-02-27 07:49] LABS: Abs Immature Grans 0.01 k/cumm (0.0-0.09); Absolute Basophil Count 0.02 k/cumm (0.0-0.2); Absolute Eosinophil Count 0.13 k/cumm (0.0-0.7); Absolute Lymphocyte Count 2.06 k/cumm (1.2-3.4); Absolute Monocyte Count 0.57 k/cumm (0.11-0.7); Absolute Neutrophil Count 3.73 k/cumm (1.2-6.7); Basophils % 0.3; HGB 11.3 g/dL (13.5-17.5); Immature Grans % 0.2; Lymphocytes % 31.6; Mean Corp. HGB Concentration 31.4 g/dL (32.0-36.0); Mean Corpuscular Hemoglobin 25.4 pg (27.0-33.0); Mean Corpuscular Volume 80.9 fL (80-95); Mean Platelet Volume 11.4 fL (8.0-11.0); Monocytes % 8.7; Neutrophils % 57.2; Platelet Count 249 x1000/uL (130-400); RBC 4.45 m/cumm (4.50-6.00); RBC Distribution Width 15.8 % (11.8-14.1); White Blood Cell Count 6.52 k/cumm (4.4-10.8)
[2019-02-27 07:55] VITALS: BP 127/79; PULSE 72; RESP 18; TEMP 36.7; O2SAT 100
[2019-02-27 08:17] LABS: Anion Gap 8.7 mmol/L (3-11); C-Reactive Protein 4.43 mg/dL (0.0-0.3); CO2 29.3 mmol/L (21.0-32.0); CREATININE 0.93 mg/dL (0.70-1.30); Calcium 9.1 mg/dL (8.5-10.1); Chloride 103 mmol/L (98-107); Glucose 95 mg/dL (70-100); Potassium 3.5 mmol/L (3.5-5.1); Sodium 141 mmol/L (136-145)
[2019-02-27 08:31] LABS: BUN 11 mg/dL (7-18)
--- NOTE | 2019-02-27 09:28 | PSYCO_ITS ---
Date of service: 02/27/19 Time of Service: 08:30 History of Present Illness Narrative: Primary Care Provider: none Information source: Patient, chart, medical team I was asked by Shakira Tapia NP to consult on Ping Kearns with question of hallucinations and PTSD. History Of Present Illness: Per Dr. Cooper' admission note: This is a 24-year-old with a 3-day history of swelling over his right face with acceleration over the last 24 hours without fever but increasing pain and swelling around his right eye. This began whenever he tried to express a pimple over his right face. He is a smoker but has no other pertinent chronic past medical history and no past surgical history. In the ED he had no fever or elevated white count though his lactate was slightly elevated and his creatinine was slightly up with decreased intake recently because of depression over the of his sister. He was given his initial dose of vancomycin and Rocephin. He also was given dexamethasone IV which appears to have helped the swelling within the last couple hours, being decreased and the patient able to open his eye more at the time I examined him. 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 Medical team noted that once he was admitted to the floor he appeared to have episodes of confusion and reported auditory and visual hallucinations when a dministered the CiWA protocol. He had reported using crack cocaine and IV heroin immediately prior to coming to the hospital, per the medical team, and his urine drug screen showed cocaine and opiates and marijuana. Yesterday, medical team was concerned about patient having pills in his room not prescribed to him (turned out to be gabapentin) and there changed his behavior plan to visitors only with supervision by staff. He was on the CiWA protocol yesterday and scoring high but without any elevation in pulse or blood pressure so symptoms of anxiety, tremulousness, and subjective auditory and visual hallucinations were thought not to be alcohol related given significant sedation with appropriate lorazepam dosing per CiWA score, and CiWA was discontinued. He was restless last night pacing the hallways and given clonidine prn for restlessness and nausea per COWS scale for opiate withdrawal. Today, he was asleep when I went to see him but easily aroused and cooperative with engaging. Mood: depressed, treats it with marijuana. Mood history: diagnosed with major depressive disorder age 14, was in therapy but quit after a while because didn't find it helpful. Denies ever taking medication for depression and does not want to take pills now. Thinks confusion and hallucinations are due to depression. Cognition: confused because I'm depressed Anxiety: worried about being in the hospital and needing to leave, also worried about his infection and what would happen if the antibiotic doesn't work. Uses marijuana to help calm usually. Perceptual disturbances: denies today, doens't otherwise want to discuss Safety: endorses past history of suicide attempt at a teenager. It didn't work so I guess God wants me to stay here. Endorses passive suicidal ideation now Who doesn't have those thoughts? but no intent or plan. Pain: in face radiating to other side of face, worried that infection is spreading into mouth. Substances: - alcohol: did not review in detail today - tobacco: tobacco user - Marijuana: daily user - other illicits/pills: recent IV heroin and cocaine user. Safety: - current suicidal/homicidal/violent ideations: endorses intermittent passive suicidal ideation but denies plan or intent - guns in home or access to weapons: none PAST PSYCHIATRIC HISTORY: Hospitalizations: never Suicide attempts: x 1 as a teenager Prescribers: none Medications: denies taking psychotropic medications Therapist: reports seeing a therapist for a while for depression but stopped because not helpful Social history: - reports working as a bell neck hammerer in [place] - lives with grandparents and a slbing in [place], [place] - visiting friends in [facility] who live under the [facility] but denies that they are homeless. 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 REVIEW OF SYSTEMS: Constitutional: +fatigue HEENT: +facial pain, especially on right side, able to barely crack open right eye and see through it, left eye unaffected Cardiovascular: No chest pains or dizziness Respiratory: no cough or shortness of breath Musculoskeletal: no weakness or trouble walking GI: No constipation, diarrhea, nausea, vomiting; appetite is fine Genitourinary: No dysuria, frequency of urination, hematuria Neurological: No weakness, seizures, numbness, tics, ataxia Psych: see above Endocrine: No cold or heat intolerance, polyuria, excessive thirst Hem/Lymph: No bruising, bleeding Allergies: see chart MENTAL STATUS EXAM: Constitutional: sleeping peacefully and fairly easily awakened Attitude: cooperative, but a bit guarded Psychomotor: no retardation or agitation Speech: nonpressured, normal volume and prosody. No articulation problems noted. Associations: no looseness Thought process: linear, nonlogical, goal directed, observed to have coherent reality based conversation with friend concerned about another friend's interaction with police and reports that he is still in the hospital with infection and doesn't know when he can leave. Thought content without psychosis, delusions, obsessions No suicidal or homicidal ideations Hallucinations denied this morning, and no objective evidence of responding to internal stimuli Mood: depressed Affect: anxious, constricted Attention/Concentration: a bit distracted Judgment/insight: poor Oriented x 4 Language appropriate to age and education Fund of knowledge appropriate to age and education Memory intact to recent and remote events Other cognitive testing: none Assessment and Plan (1) Depression: Current visit: No Status: Chronic Ping Kearns is a 24 year old male with past psychiatric history of m ajor depressive disorder by patient report who presented to the ED two days ago with right facial swelling and cellulitis related to popping a pimple and also with recent IV heroin, marijuana, and cocaine use. I was consulted to help with evaluation of patient endorsing auditory and visual hallucinations and also agitation and confusion. 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 History and clinical exam reveal a diagnosis of depression unspecified and polysubstance abuse. It is unclear whether a psychotic disorder or substance use and/or withdrawal, or both, are contributing to his reported perceptual disturbances. He stated that he did not want to discuss these issues today and that he was not interested in mental health treatment for them. He prefers to use marijuana to treat his symptoms. I did advise that marijuana might be worsening his symptoms. Recommendation: - continue supervised visits with his friends given that he is unknown to us and staff have concerns about visitors bringing him substances. - continue with symptoms management of opiate withdrawal and agitation with clonidine and lorazepam as ordered - I agree with discontinuation of CiWA protocol given no evidence of alcohol withdrawal. Safety: he denied suicidal ideation, had friends to go to, and future plans, and was reasonably cognitively intact. I agree with the team allowing him to leave AMA. Visit Statistics Total Visit Minutes: 55 Visit Time Allocation >50% of face to face visit spent in counseling (Extensive teaching, explanation and instructions. Counseling as appropriate. Review of plans, and discussion concerning medical problems dealt with at this visit. Discussion of benefits/risks of treatment, anticipated course of events, potential medication side effects, options, alternatives, and follow up plans. Questions were solicited and answered, and the patient verbalized understanding.), and/or coordination of care. (2) Hallucination: Current visit: No Status: Acute see above [facility] Medical History (Updated 02/27/19 @ 19:16 by Shruthi Segovia MD) Drug abuse and dependence (Acute) Situational depression (Acute) Social History Smoking/Tobacco Use Status: Current every day Tobacco Type: cigarettes Alcohol Intake: never Substance use type: marijuana and crack/cocaine Results Last Vital Signs Temp 36.7 C 02/27/19 07:55 Pulse 72 02/27/19 07:55 Resp 18 02/27/19 07:55 BP 127/79 02/27/19 07:55 Pulse Ox 100 02/27/19 07:55 Labs : 02/27/19 07:20 02/27/19 07:20 Laboratory Results - last 24 hr 02/27/19 02/27/19 07:20 07:20 WBC 6.52 D RBC 4.45 L Hgb 11.3 L Hct 36.0 L MCV 80.9 MCH 25.4 L MCHC 31.4 L RDW 15.8 H Plt Count 249 MPV 11.4 H Immature Gran % 0.2 Neutrophils % 57.2 Lymphocytes % 31.6 Monocytes % 8.7 Eosinophils % 2.0 Basophils % 0.3 Absolute Neutrophils 3.73 Absolute Lymphocytes 2.06 Absolute Monocytes 0.57 Absolute Eosinophils 0.13 Absolute Basophils 0.02 Sodium 141 Potassium 3.5 Chloride 103 Carbon Dioxide 29.3 Anion Gap 8.7 BUN 11 D Creatinine 0.93 Estimated GFR/1.73 m2 >= 60.00 Glucose 95 Calcium 9.1 Magnesium 2.0 C-Reactive Protein 4.43 H
[2019-02-27 11:39] VITALS: BP 175/97; PULSE 73; RESP 18; TEMP 36.6; O2SAT 100
--- NOTE | 2019-02-27 12:50 | DSE_ITS ---
Date of service: 02/27/19 Time of Service: 12:50 DS: Diagnosis Discharge Diagnosis (1) Cellulitis of face: Status: Acute Asessment and Plan: Wound C&S with MRSA (2) Drug abuse and dependence: Status: Acute (3) Situational depression: Status: Acute Discharge Plan Disposition Patient Disposition: AGAINST MEDICAL ADVICE Condition: Serious Discharge Details Chief Complaint: Cellulitis Clinical Impression: Cellulitis of face Reason For Visit: FACIAL CELLULITIS Admit Date/Time: 02/25/19 17:32 Admit Provider: Mack Cooper Attending Provider: Mack Cooper Primary Care Provider: None,None ED Provider: Winnie Garvin Hospital Course Hospital Course: Mr Kearns is a 24 year old male with PMHx of situational depression who was admitted to [facility] on 02/25/19 with facial cellulitis after attempt to pop a pimple at home with an unknown instrument at home. He did also admit to using IV drugs (heroin, cocaine). He was treated with IVF, IV vancomycin, IV rocephin. His blood cultures were negative. His wound c&s grew MRSA, sensitivities are pending. There is no evidence of abscess at this time. The patient, however, still has significant cellulitis and swelling of the right side of his face. He is going through substance withdrawal - we believe opioid and cocaine. He was evaluated to by psychiatry for his symptoms of anxiety and reported hallucin ations - he is felt to not be suicidal/in an acute decompensation of a psychiatric condition, and his symptoms are likely related to withdrawal. He desires to leave AMA at this time. We are ensuring that the patient leaves with actual physical medications in hand (cipro/doxy). He is instructed to return to the ED/report to the nearest ED when he does leave. He verbalizes that he understands that he could , loose vision, get seriously ill if he does not get fully treated for this infection and desires to leave AMA anyway, signing appropriate paperwork. Home Meds and New Rx's Prescriptions: New ciprofloxacin HCl [Cipro] 500 mg tablet 500 mg PO BID Qty: 20 RF: 0 doxycycline hyclate 100 mg capsule 100 mg PO BID Qty: 20 RF: 0 Discharge Instructions Instructions: Ciprofloxacin (By mouth), Doxycycline (By mouth), Cellulitis (DC) Additional Instructions: Report to the nearest ED. Take your antibiotics as prescribed. Activity:: Activity as Tolerated Equipment/Supplies:: No Equipment Needed Diet:: As Tolerated Discharge Orders Discharge Orders: Discharge Order (Routine); Ordered 02/27/19 Ordered By: Mame Greene Exam Narrative Exam Narrative: Limited - patient asked me not to listen to his heart and lungs. He does have severe swelling of his R upper/lower eyelids. He is unable to open his right eye. He has swelling of his right chick. DS: Data Vitals/I&O Vitals and I&O: Vital Signs Temperature 36.6 C 02/27/19 11:39 Temperature Source Tympanic 02/27/19 11:39 Pulse 73 02/27/19 11:39 Pulse Rhythm Regular 02/27/19 09:33 Respiratory Rate 18 02/27/19 11:39 Respiratory Effort Non-Labored 02/27/19 09:33 Respiratory Depth Normal 02/27/19 09:33 Respiratory Pattern Normal 02/27/19 09:33 Blood Pressure 175/97 H 02/27/19 11:39 Blood Pressure Position Sitting 02/25/19 13:54 Pulse Oximetry 100 02/27/19 11:39 Oxygen Delivery Method Room Air 02/27/19 11:39 Oxygen Flow Rate 0 02/27/19 11:39 Pain Level 0 02/27/19 04:10 Comment 02/26/19 07:25 Intake & Output 02/26/19 02/27/19 02/27/19 23:59 11:59 23:59 Intake Total 550 / 2702.083 60 / 60 Balance 550 / 2222.083 60 / 60 Intake: IV 550 / 2102.083 60 / 60 Other: Urine Color Pale Yellow Urine Appearance Clear Urine Odor None Comment voided in toilet independently Emesis Description Retching Gastric Occult Blood Negative Voiding Methods Toilet Completed studies during hospitalization [Text1]: Facial CT: Right cory-orbital soft tissue swelling suspicious for cellulitis. No abscess is seen. Orbits and retro-orbital soft tissues are unremarkable. Mild weems sinusitis. Labs on day of discharge: Labs from last 24 hours 02/27/19 02/27/19 02/27/19 07:20 07:20 07:20 WBC 6.52 D RBC 4.45 L Hgb 11.3 L Hct 36.0 L MCV 80.9 MCH 25.4 L MCHC 31.4 L RDW 15.8 H Plt Count 249 MPV 11.4 H Immature Gran % 0.2 Neutrophils % 57.2 Lymphocytes % 31.6 Monocytes % 8.7 Eosinophils % 2.0 Basophils % 0.3 Absolute Neutrophils 3.73 Absolute Lymphocytes 2.06 Absolute Monocytes 0.57 Absolute Eosinophils 0.13 Absolute Basophils 0.02 Sodium Potassium Chloride Carbon Dioxide Anion Gap BUN Creatinine Estimated GFR/1.73 m2 Glucose Calcium Magnesium C-Reactive Protein Hep Bs Antigen Pending Hep Bs Antibody Pending Hep Bs Antibody, Quant Pending Hep B Core Total Ab Pending Hepatitis C Antibody Pending HIV 1&2 Ag/Ab, 4th Gen Pending 02/27/19 07:20 WBC RBC Hgb Hct MCV MCH MCHC RDW Plt Count MPV Immature Gran % Neutrophils % Lymphocytes % Monocytes % Eosinophils % Basophils % Absolute Neutrophils Absolute Lymphocytes Absolute Monocytes Absolute Eosinophils Absolute Basophils Sodium 141 Potassium 3.5 Chloride 103 Carbon Dioxide 29.3 Anion Gap 8.7 BUN 11 D Creatinine 0.93 Estimated GFR/1.73 m2 >= 60.00 Glucose 95 Calcium 9.1 Magnesium 2.0 C-Reactive Protein 4.43 H Hep Bs Antigen Hep Bs Antibody Hep Bs Antibody, Quant Hep B Core Total Ab Hepatitis C Antibody HIV 1&2 Ag/Ab, 4th Gen Preliminary micro results at discharge 02/26/19 10:30 Wound Culture - Preliminary Face - Right Staph aureus, MRSA 02/25/19 15:10 Blood Culture - Preliminary Blood NO GROWTH 24 HOURS 02/25/19 14:40 Blood Culture - Preliminary Blood NO GROWTH 24 HOURS [facility] Medical History (Updated 02/26/19 @ 13:27 by Shakira Tapia NP) Drug abuse and dependence (Acute) Situational depression (Acute) Social History Smoking/Tobacco Use Status: Current every day Tobacco Type: cigarettes Alcohol Intake: never Substance use type: marijuana and crack/cocaine
--- NOTE | 2019-02-27 13:36 | PDOC.CMDIS ---
- If Service Date Differs Date of service: 02/27/19 Time of Service: 13:36 LACE Index Scoring Tool - Questions: Length of Stay (in days): 1 Acuity (Admit via E.D.?): Yes E.D. Visits: 1 - Answers: Total Score: 5 Risk of Readmission: Low Risk Care Management Discharge Reason for Hospitalization: cellulitis of the right face Discharge Plan: Ping decided to leave AMA. He verbalized being unhappy with the rules and having his visitations monitored. He was given antibiotics and discharge instructions. His friend Demetrius will transport via private vehicle. Patient/Family Education Needs: Discharge instructions, limitations, follow up care and Ask Me Three.
[2019-02-28 11:01] LABS: HIV-1/2 Ag & Ab Screen Negative (NEGAT)
[2019-02-28 11:02] LABS: HBs Antibody, Qual Positive; HBs Antibody, Quant 179.6 mIU/mL; Hepatitis B Core Antibody Negative (NEGAT); Hepatitis B surface Ag Negative (NEGAT); Hepatitis C Ab w Rflx HCV PCR Negative (NEGAT)
== END 2019-02-27 13:01 | disposition left against medical advice (07) | DRG 603 ==
LOC: ER 17:45 → MS 18:43
PROVIDERS: Nurse Practitioner Family; Admitting Provider Family Medicine; Emergency Provider Physician Assistant; Visit Provider Internal Medicine
DX: L03.211 Cellulitis of face (principal); F14.23 Cocaine dependence with withdrawal; F11.23 Opioid dependence with withdrawal; F43.21 Adjustment disorder with depressed mood; Z53.21 Procedure and treatment not carried out due to patient leaving prior to being seen by health care provider; B95.62 Methicillin resistant Staphylococcus aureus infection as the cause of diseases classified elsewhere; F17.210 Nicotine dependence, cigarettes, uncomplicated; Z63.4 Disappearance and death of family member
CPT/HCPCS: 36415; 80048; 80053; 80307; 85027; 86704; 86706; 86803; 87040; 87077; 87340; 87389; 96365; 96366; 96375; 99219; 99233; 99239; 99254; 99285; J1650; 70487; 83605; 83735; 85025; 86140; 87070; 87186; 87205; 99222; 99284; J1100; J1885; J2405; J3370; J3490